=== PATIENT | male | born 1930 | race Caucasian/White ===

== ENCOUNTER 2017-07-25 15:59 | Emergency (ER) | payer MEDICARE ==
[~2017-07-25] VITALS: Ht 175.3 cm; Wt 79.5 kg
[~2017-07-25 15:59] MED LIST: AMARYL 2MG T2 MG/TAB PO; ASPIRIN 32325 MG/TAB PO; CEPHALEXIN500 M1 PO; GLUCOPHAGE500 MG/TAB PO; ICAPS MV1 TAB PO; NORCO ELIXIR PO; VASOTEC 2.2.5 MG/TAB PO
[2017-07-25 16:03] VITALS: BP 181/86; TEMP 97.3
[2017-07-25 17:12] VITALS: PULSE 86
== END 2017-07-25 17:12 | disposition home or self-care (01) ==
LOC: COL.ER 15:59
DX: S06.0X0A Concussion without loss of consciousness, initial encounter (principal); S00.03XA Contusion of scalp, initial encounter; E11.9 Type 2 diabetes mellitus without complications; Z79.84 Long term (current) use of oral hypoglycemic drugs; W07.XXXA Fall from chair, initial encounter